=== PATIENT | female | born 1995 | race Two or more races ===

== ENCOUNTER 2020-06-25 17:33 | Emergency (ER) | payer OTHER ==
[~2020-06-25] VITALS: Ht 160 cm; Wt 106.6 kg
[2020-06-25] MEDS ORDERED: IV NS 0.9% 250 ML BAG IV ONE (19:30)
[2020-06-25] MEDS ORDERED: IV NS 0.9% 1,000 ML BAG IV ONE (19:30)
[2020-06-25] MEDS ORDERED: diphenhydrAMINE HCL 50 MG/ML VIAL IV ONE (19:30)
[2020-06-25] MEDS ORDERED: METOCLOPRAMIDE HCL 10 MG/2 ML VIAL IV ONE (19:30)
[2020-06-25] MEDS ORDERED: KETOROLAC TROMETHAMINE INJ 30 MG/ML VIAL IV ONE (19:30)
[2020-06-25] MEDS ORDERED: diphenhydrAMINE HCL 50 MG/ML VIAL ONE (19:30)
[2020-06-25] MEDS ORDERED: KETOROLAC TROMETHAMINE INJ 30 MG/ML VIAL ONE (19:31)
[2020-06-25] MEDS ORDERED: METOCLOPRAMIDE HCL 10 MG/2 ML VIAL ONE ×2 (19:31→19:33)
--- NOTE | 2020-06-25 19:42 | NUR ---
PT BIB BOYFRIEND C/O MIGRAINE HEADACHE AND NAUSEA SINCE YESTERDAY. PT HAS HISTORY OF MIGRAINES SIMILAR TO THIS. TRIED IBUPROFEN, TYLENOL, AND OTC NAUSEA MEDS WITH NO RELIEF. NAD NOTED. NO NEURO DEFICITS. COVID NEGATIVE, TESTTED YESTERDAY.
--- NOTE | 2020-06-25 20:24 | NUR ---
IV removed. Catheter intact and site benign. Pressure and 4x4 applied to site. No bleeding noted. Patient discharged to home in stable condition. Written and verbal after care instructions given. Patient verbalizes understanding of instruction. ambulatory with a steady gait noted. pt aaox4 no acute distress noted, resp even and unlabored. pt verbalize relief of headache. advice pt not to drive or operate any machinery due to pt was given benadryl. pt verbalize understanding and states "my boyfriend is outside waiting for me".
[2020-06-25 20:26] VITALS: BP 120/64
== END 2020-06-25 20:27 | disposition home or self-care (01) ==
LOC: ER 17:42
DX: G43.009 Migraine without aura, not intractable, without status migrainosus (principal); R11.0 Nausea; Z60.2 Problems related to living alone
CPT/HCPCS: 96361; 96374; 96375; 99284; J1200; J1885; J2765 ×2; J7030